=== PATIENT | female | born 2000 | race American Indian/Alaskan Native ===

== ENCOUNTER 2021-01-16 21:51 | Inpatient (IN) | payer MEDICAID ==
[2021-01-16] MEDS ORDERED: LACTATED RINGERS 1,000 ML IV ONE (22:44)
[2021-01-16] MEDS ORDERED: LACTATED RINGERS 1,000 ML IV SCH (23:45)
[2021-01-16 23:46] LABS: Bilirubin,Urine NEG (Negative); Blood,Urine MOD (Negative); Color,Urine Yellow (Yellow); Mucus,Urine FEW /HPF
[2021-01-16 23:46] LABS: Alanine Aminotransferase 8 units/L (7-56); Albumin 3.5 g/dL (3.9-5); BUN/Creatinine Ratio 12; Blood Urea Nitrogen 6 mg/dL (7-17); Calcium 9.1 mg/dL (8.4-10.2); Hemolysis Index 68
[2021-01-16] MEDS ORDERED: BUTORPHANOL 2 MG/1 ML INJ ONE (23:47)
[2021-01-16 23:52] LABS: Eosinophils % (Auto) 0.3 % (0.0-4.3); Hematocrit 39.6 % (30.3-42.9); Hemoglobin 13.5 gm/dl (10.1-14.3); Lymphocytes # (Auto) 1.3 K/mm3 (1.2-5.4); Lymphocytes % (Auto) 8.2 % (13.4-35.0); Mean Corpuscular HGB Conc 34 % (30-34); Mean Corpuscular Volume 90 fl (79-97); Monocytes % (Auto) 6.3 % (0.0-7.3); Platelet Count 182 K/mm3 (140-440); Red Blood Count 4.39 M/mm3 (3.65-5.03); Red Cell Distribution Width 12.9 % (13.2-15.2)
[2021-01-16 23:53] LABS: Amphetamine Screen,Urine PRESUMPTIVE NEGATIVE; Benzodiazepines Screen,Urine PRESUMPTIVE NEGATIVE; Cannabinoid Screen,Urine PRESUMPTIVE NEGATIVE; Cocaine Screen,Urine PRESUMPTIVE NEGATIVE; Methadone Screen,Urine PRESUMPTIVE NEGATIVE; Opiate Screen,Urine PRESUMPTIVE NEGATIVE
--- NOTE | 2021-01-16 23:55 | History and Physical Report ---
History of Present Illness Date of examination: 01/17/21 Date of admission: contractions Chief complaint: contractions, elevated BPs History of present illness: 20 yo at 39w0d by [facility] 01/24/21 c/b varicella non-immune presenting, GBS pos, presenting with contractions, found to be 2 cm. However, also found to have elevated BPs on admission that resolved spontaneously. PIH labs wnl. Admitted for OBS and potential IOL. PNC reviewed A pos, Ab neg 33.1/10.8 Varicella NI RPR NR Rubella Immune GBS pos HIV NR 1hr GTT 109 Past History Past Medical History: no pertinent history Past Surgical History: no surgical history Family/Genetic History: none Social history: no significant social history - Obstetrical History Expected Date of Delivery: 01/24/21 Actual Gestation: 39 Week(s) 0 Day(s) : 2 Para: 0 Spontaneous Abortions: 1 Number of Living Children: 0 Medications and Allergies Allergies Allergy/AdvReac Type Severity Reaction Status Date / Time No Known Allergies Allergy Verified 01/16/21 22:44 Home Medications Medication Instructions Recorded Confirmed Last Taken Type No Known Home Medications [No 01/17/21 01/17/21 Unknown History Reported Home Medications] Active Meds: Active Medications Butorphanol Tartrate (Butorphanol 2 Mg/1 Ml Inj) 2 mg IV Q2H PRN PRN Reason: Labor Pain Lactated Ringer's (Lactated Ringers) 1,000 mls @ 125 mls/hr IV DIRECT SOPHIA Review of Systems All systems: negative (expect HPI) - Vital Signs Vital signs: Vital Signs Temp 99.9 F H 01/16/21 22:15 Temp Pulse Resp BP Pulse Ox 99.9 F H 99 H 140/92 01/16/21 22:15 01/16/21 23:47 01/16/21 23:47 - Physical Exam Abdomen: Positive: normal appearance, normal bowel sounds Uterus: Positive: enlarged - Obstetrical FHR: category 1 Uterine Contraction Monitor Mode: External Cervical Dilatation: 2 Uterine Contraction Pattern: Irregular Results Result Diagrams: 01/16/21 23:02 01/16/21 22:44 Abnormal lab results 01/16/21 01/16/21 Range/Units 22:44 23:02 WBC 16.0 H (4.5-11.0) K/mm3 RDW 12.9 L (13.2-15.2) % Lymph % (Auto) 8.2 L (13.4-35.0) % [place] # (Auto) 1.0 H (0.0-0.8) K/mm3 Seg Neutrophils % 85.2 H (40.0-70.0) % Seg Neutrophils # 13.6 H (1.8-7.7) K/mm3 Sodium 136 L (137-145) mmol/L Carbon Dioxide 19 L (22-30) mmol/L BUN 6 L (7-17) mg/dL Creatinine 0.5 L (0.6-1.2) mg/dL Alkaline Phosphatase 200 H (35-129) units/L Albumin 3.5 L (3.9-5) g/dL All other labs normal. Assessment and Plan - Patient Problems (1) Elevated blood pressure affecting in third trimester, antepartum Current Visit: Yes Status: Acute Plan to address problem: PIH labs wnl. BPs improved without intervention. Monitor of s/sx of preeclampsia. Proceed with IOL for atleast GHTN Cervidil for cervical ripening, followed by pitocin Anticipae Amp for GBS pos
[2021-01-17] MEDS ORDERED: ACETAMINOPHEN 325 MG TAB PO PRN ×2 (00:33→16:47)
[2021-01-17] MEDS: BUTORPHANOL 2 MG/1 ML INJ IV PRN ×2 (01:24→11:50)
[2021-01-17] MEDS ORDERED: TERBUTALINE 1 MG/1 ML INJ SUB-Q PRN (07:52)
[2021-01-17] MEDS ORDERED: AMPICILLIN/NS 2 GM/100 ML 2 GM/100 ML BAG IV ONE (07:52)
[2021-01-17] MEDS ORDERED: LIDOCAINE (2%) 20 MG/1 ML VIAL 20 ML MDV INFILTRATI NR (07:52)
[2021-01-17] MEDS ORDERED: DINOPROSTONE 10 MG VAG SUPP VG NR (07:52)
[2021-01-17] MEDS ORDERED: miSOPROStol 200 MCG TAB PR PRN (07:54)
[2021-01-17] MEDS ORDERED: OXYTOCIN 10 UNIT/1 ML INJ IM PRN (07:54)
[2021-01-17] MEDS ORDERED: CARBOPROST TROMETHAMINE 250 MCG/1 ML INJ IM PRN (07:54)
[2021-01-17] MEDS ORDERED: METHYLERGONOVINE MALEATE 0.2 MG/ML VIAL IM PRN (07:54)
[2021-01-17] MEDS ORDERED: OXYTOCIN DRIP 30 UNITS/500 ML BAG IV SCH ×2 (08:00)
[2021-01-17] MEDS ORDERED: LOPERAMIDE 2 MG CAP PO PRN (08:00)
[2021-01-17] MEDS ORDERED: LACTATED RINGERS 1,000 ML IV SCH ×2 (08:00)
[2021-01-17] MEDS ORDERED: ePHEDrine SULFATE 50 MG/1 ML INJ IV PRN ×2 (08:30→16:30)
--- NOTE | 2021-01-17 09:20 | Progress Note ---
Assessment and Plan A: IUP@ 39.1 wks (IOL r/t PIH) GBS pos Varicella NI P: Continue monitoring GBS protocal Offer Varicella vaccine pp Anticipate Subjective - Subjective Date of service: 01/17/21 Principal diagnosis: IUP@ 39.1 wks Patient reports: movement normal Objective - Vital Signs Vital Signs: Vital Signs - 12hr 01/16/21 01/16/21 01/16/21 22:15 22:16 22:21 Temperature 99.9 F H Pulse Rate 101 H 97 H Respiratory Rate Blood Pressure 186/95 186/103 Blood Pressure [Left] 01/16/21 01/16/21 01/16/21 22:32 22:48 23:04 Temperature Pulse Rate 103 H 100 H 112 H Respiratory Rate Blood Pressure 193/110 161/91 134/85 Blood Pressure [Left] 01/16/21 01/16/21 01/16/21 23:17 23:32 23:47 Temperature Pulse Rate 102 H 86 99 H Respiratory Rate Blood Pressure 139/94 131/63 140/92 Blood Pressure [Left] 01/17/21 01/17/21 01/17/21 01:13 01:52 02:13 Temperature 99.1 F Pulse Rate 100 H 103 H 102 H Respiratory Rate Blood Pressure 117/74 124/74 120/76 Blood Pressure 117/74 [Left] 01/17/21 01/17/21 01/17/21 02:33 02:52 03:12 Temperature Pulse Rate 94 H 99 H 100 H Respiratory Rate Blood Pressure 130/84 119/70 129/84 Blood Pressure [Left] 01/17/21 01/17/21 01/17/21 03:37 03:53 04:32 Temperature Pulse Rate 99 H 104 H 102 H Respiratory Rate Blood Pressure 137/84 125/76 134/83 Blood Pressure [Left] 01/17/21 01/17/21 01/17/21 04:52 05:20 05:34 Temperature Pulse Rate 101 H 96 H 94 H Respiratory Rate Blood Pressure 128/78 128/82 139/96 Blood Pressure [Left] 01/17/21 01/17/21 01/17/21 05:37 05:54 06:13 Temperature Pulse Rate 90 92 H 87 Respiratory Rate Blood Pressure 141/87 143/84 134/88 Blood Pressure [Left] 01/17/21 01/17/21 01/17/21 06:33 06:54 07:15 Temperature Pulse Rate 88 86 93 H Respiratory Rate Blood Pressure 133/69 127/71 114/67 Blood Pressure [Left] 01/17/21 01/17/21 07:40 07:51 Temperature 99.0 F Pulse Rate 93 H Respiratory 18 Rate Blood Pressure 129/71 Blood Pressure [Left] - Exam Breasts: normal Abdomen: Present: normal appearance, soft, normal bowel sounds, other (gravid) Vulva: both: normal Uterus: Present: normal, other (gravid) FHR: auscultation normal, category 1 Uterine Contraction Monitor Mode: External Cervical Dilatation: 3 (per nurse) Cervical Effacement Percentage: 60 station: -3 Uterine Contraction Pattern: Irregular Uterine Tone Measurement Phase: Resting Uterine Contraction Intensity: Mild Extremities: normal - Labs Labs: Abnormal Labs 01/16/21 01/16/21 01/16/21 22:44 23:02 23:12 WBC 16.0 H RDW 12.9 L Lymph % (Auto) 8.2 L [place] # (Auto) 1.0 H Seg Neutrophils % 85.2 H Seg Neutrophils # 13.6 H Sodium 136 L Carbon Dioxide 19 L BUN 6 L Creatinine 0.5 L Alkaline Phosphatase 200 H Albumin 3.5 L Urine WBC (Auto) 17.0 H Laboratory Results - last 24 hr 01/16/21 01/16/21 01/16/21 22:44 23:02 23:02 WBC 16.0 H RBC 4.39 Hgb 13.5 Hct 39.6 MCV 90 MCH 31 MCHC 34 RDW 12.9 L Plt Count 182 Lymph % (Auto) 8.2 L [place] % (Auto) 6.3 Eos % (Auto) 0.3 Baso % (Auto) 0.0 Lymph # (Auto) 1.3 [place] # (Auto) 1.0 H Eos # (Auto) 0.0 Baso # (Auto) 0.0 Seg Neutrophils % 85.2 H Seg Neutrophils # 13.6 H Sodium 136 L Potassium 4.2 Chloride 104.3 Carbon Dioxide 19 L Anion Gap 17 BUN 6 L Creatinine 0.5 L Estimated GFR > 60 BUN/Creatinine Ratio 12 Glucose 73 Calcium 9.1 Total Bilirubin 0.70 AST 19 ALT 8 Alkaline Phosphatase 200 H Total Protein 6.6 Albumin 3.5 L Albumin/Globulin Ratio 1.1 Urine Color Urine Turbidity Urine pH Ur Specific [place] Urine Protein Urine Glucose (UA) Urine Ketones Urine Blood Urine Nitrite Urine Bilirubin Urine Urobilinogen Ur Leukocyte Esterase Urine WBC (Auto) Urine RBC (Auto) U Epithel Cells (Auto) Urine Mucus Urine Opiates Screen Urine Methadone Screen Ur Barbiturates Screen Ur Phencyclidine Scrn Ur Amphetamines Screen U Benzodiazepines Scrn Urine Cocaine Screen U Marijuana (THC) Screen Drugs of Abuse Note Blood Type A POSITIVE Antibody Screen Negative 01/16/21 01/16/21 23:12 23:12 WBC RBC Hgb Hct MCV MCH MCHC RDW Plt Count Lymph % (Auto) [place] % (Auto) Eos % (Auto) Baso % (Auto) Lymph # (Auto) [place] # (Auto) Eos # (Auto) Baso # (Auto) Seg Neutrophils % Seg Neutrophils # Sodium Potassium Chloride Carbon Dioxide Anion Gap BUN Creatinine Estimated GFR BUN/Creatinine Ratio Glucose Calcium Total Bilirubin AST ALT Alkaline Phosphatase Total Protein Albumin Albumin/Globulin Ratio Urine Color Yellow Urine Turbidity Clear Urine pH 6.0 Ur Specific [place] 1.019 Urine Protein 30 mg/dl Urine Glucose (UA) Neg Urine Ketones Neg Urine Blood Mod Urine Nitrite Neg Urine Bilirubin Neg Urine Urobilinogen 2.0 Ur Leukocyte Esterase Tr Urine WBC (Auto) 17.0 H Urine RBC (Auto) 2.0 U Epithel Cells (Auto) 5.0 Urine Mucus Few Urine Opiates Screen Presumptive negative Urine Methadone Screen Presumptive negative Ur Barbiturates Screen Presumptive negative Ur Phencyclidine Scrn Presumptive negative Ur Amphetamines Screen Presumptive negative U Benzodiazepines Scrn Presumptive negative Urine Cocaine Screen Presumptive negative U Marijuana (THC) Screen Presumptive negative Drugs of Abuse Note Disclamer Blood Type Antibody Screen
[2021-01-17] MEDS: PRENATAL VIT27-FE FUMARATE-FOLIC ACID VIT TAB PO SCH (10:00)
[2021-01-17] MEDS: AMPICILLIN/NS 1 GM/50 ML 1 GM/50 ML BAG IV SCH ×2 (12:52→16:56)
[2021-01-17] MEDS ORDERED: fentaNYL-BUPIV 2 MCG/ML-0.125% 200 MCG/100 ML BAG EPIDURAL SCH (16:00)
--- NOTE | 2021-01-17 16:00 | Anesthesia Consultation ---
Anesthesia Consult and Med Hx Date of service: 01/17/21 - Airway Anesthetic Teeth Evaluation: Chipped ROM Head & Neck: Adequate Mental/Hyoid Distance: Adequate Mallampati Class: Class II Intubation Access Assessment: Probably Good - Pulmonary Exam CTA: Yes - Cardiac Exam Cardiac Exam: RRR - Pre-Operative Health Status ASA Pre-Surgery Classification: ASA3 Proposed Anesthetic Plan: Epidural - Pulmonary Hx Asthma: Yes (NEVER HAD AN ATTACK) COPD: No Hx Pneumonia: No - Cardiovascular System Hx Hypertension: No - Central Nervous System Hx Seizures: No Hx Psychiatric Problems: No - Endocrine Hx Renal Disease: No Hx End Stage Renal Disease: No Hx Hypothyroidism: No Hx Hyperthyroidism: No - Hematic Hx Anemia: No Hx Sickle Cell Disease: No - Other Systems Hx Obesity: Yes
--- NOTE | 2021-01-17 16:19 | Progress Note ---
Labor Epidural - Labor Epidural Start Time: 16:09 Stop Time: 16:13 Performed by:: ZOLTAN WILKINSON Procedure: Patient is requesting epidural for labor pain. H&P, and labs reviewed. Procedure explained, questions answered, consent obtained. Patient in sitting position with blood pressure cuff and pulse ox on and working. Timeout performed immediately before start of procedure. Sterile chlorahexadine 0.5% prep/drape. 3 mL 1% lidocaine skin wheal at L[3]-L[4]. 18-gauge [employer] epidural needle advanced to [id number] with saline at [7] cm. 27-gauge spinal needle advanced until clear, free-flowing CSF. Intrathecal dexmedetomidine [5] mcg administered and needle removed. Epidural catheter advanced to [12] cm, negative aspiration for blood and csf, negative test dose 3 ml 1.5% lidocaine with epinephrine. Sterile steri-strips and tegaderm applied, followed by tape reinforcement. Patient tolerated procedure well.
[2021-01-17] MEDS ORDERED: NALOXONE 2 MG/2 ML INJ IV PRN (16:30)
[2021-01-17] MEDS ORDERED: fentaNYL 100 MCG/2 ML INJ IV PRN (16:47)
[2021-01-17] MEDS ORDERED: BUTORPHANOL 2 MG/1 ML INJ IV PRN ×2 (16:47)
[2021-01-17] MEDS ORDERED: MINERAL OIL 30 ML ORAL LIQD PO PRN (22:00)
[2021-01-18] MEDS ORDERED: WITCH HAZEL/ GLYCERIN PAD TP PRN (00:26)
[2021-01-18] MEDS ORDERED: PROMETHAZINE 25 MG TAB PO PRN (00:26)
[2021-01-18] MEDS ORDERED: MAGNESIUM HYDROXIDE (MOM) ORAL LIQD UDC PO PRN (00:26)
[2021-01-18] MEDS ORDERED: LANOLIN/ZINC/DIMETHICONE (LANSINOH) 7 GM TP PRN (00:26)
[2021-01-18] MEDS ORDERED: oxyCODONE /ACETAMINOPHEN 5-325MG TAB PO PRN (00:26)
[2021-01-18] MEDS ORDERED: ONDANSETRON 4 MG/2 ML INJ IV PRN (00:26)
[2021-01-18] MEDS ORDERED: diphenhydrAMINE 25 MG CAP PO PRN (00:26)
[2021-01-18] MEDS ORDERED: PROMETHAZINE 25 MG RECT SUPP PR PRN (00:26)
--- NOTE | 2021-01-18 00:33 | Procedure Note ---
OB Delivery Note - Delivery Date of Delivery: 01/18/21 Surgeon: BERE JEONG Estimated blood loss: other (550cc) - Vaginal Delivery presentation: vertex Delivery position: OA Intrapartum events: gestational hypertension, hemorrhage Delivery induction: oxytocin Delivery augmentation: rupture of membranes Delivery monitor: external FHT, external uterine Route of delivery: Delivery placenta: spontaneous Delivery cord: 3 umbilical vessels Episiotomy: none Delivery laceration: none Anesthesia: epidural Delivery comments: of a stunned live viable female infant in OA position over an intact perineum. was placed on mom's chest/abd while cord was clamped x2 and cut. Infant was given to awaiting NICU nurse for an asses 6/8. Spontaneous delivery of an intact placenta with 3CV. Fundus @ 3U boggy intermittently with constant trickle of bright red blood. Homeostasis was maintained with fundal mas reynold, IM pitocin, Cytotec MO, and Methergine 0.2 mg IM. QBL 605 cc. FW 3150 Gms. Mom and baby was left in stable condition with nurse. - Infant A at 1 minute: 6 at 5 minutes: 8 Infant Gender: Female
[2021-01-18] MEDS ORDERED: MAGNESIUM SULFATE 40GM/1000ML 40 GM/1,000 ML BAG IV ONE (00:57)
[2021-01-18] MEDS ORDERED: MAGNESIUM SULFATE 4 GM/100 ML BAG IV ONE (01:01)
[2021-01-18] MEDS ORDERED: ACETAMINOPHEN 325 MG TAB PO PRN (01:10)
[2021-01-18] MEDS ORDERED: hydrALAZINE 20 MG/1 ML INJ IV ONE (01:15)
--- NOTE | 2021-01-18 01:38 | Event Note ---
Date: 01/18/21 Notified by nurse that pt's b/p was 179/84 and her temp was 102.5. Pt denied stallings, visual problems, or epigastric pain. Hydralazine 10mg IV, Labetalol 100mg bid, Tylenol 650 mg prn, and Clind/Gent/Ampi started along with Mgso4 with Mg prec. B/P down to 158/77 after Hydralazine. Will cont moniitoring. Dr Muñoz was notified.
[2021-01-18] MEDS ORDERED: AMPICILLIN 500 MG VIAL IV SCH (02:00)
[2021-01-18] MEDS ORDERED: GENTAMICIN/NS 80 MG/100 ML 100 ML IV SCH (02:00)
[2021-01-18] MEDS: AMPICILLIN/NS 1 GM/50 ML 1 GM/50 ML BAG IV SCH ×4 (02:13→20:56)
[2021-01-18] MEDS: IBUPROFEN 600 MG TAB PO SCH ×5 (06:00→23:37)
[2021-01-18] MEDS: GENTAMICIN/NS 100 MG/100 ML 100 MG/100 ML BAG IV SCH ×3 (06:19→23:36)
[2021-01-18 08:47] LABS: Hematocrit 35.1 % (30.3-42.9)
[2021-01-18] MEDS ORDERED: PRENATAL VIT27-FE FUMARATE-FOLIC ACID VIT TAB PO SCH (10:00)
[2021-01-18] MEDS: PRENATAL VIT27-FE FUMARATE-FOLIC ACID VIT TAB PO SCH (10:11)
--- NOTE | 2021-01-18 11:21 | Progress Note ---
Assessment and Plan A: day 1 S/P . Gestational hypertension. Obesity. History of hemorrhage during delivery. Suspected endometritis (had fever overnight and elevated WBC): currently on triple antibiotics. P: Continue antibiotics. Repeat CBC tomorrow morning. Continue BP monitoring and routine care. Subjective - Subjective Date of service: 01/18/21 Principal diagnosis: day 1 S/P Interval history: Patient on triple antibiotics due to elevated WBC and fever overnight. Urine culture shows normal juan. Patient reports: appetite normal, voiding normally, pain well controlled, flatus, ambulating normally, no dizzy ambulation, no nauseated [place]: doing well Objective - Vital Signs Latest vital signs: Vital Signs Temp Pulse Resp BP BP Pulse Ox 01/18/21 08:10 99.8 F H 91 H 18 121/74 100 01/18/21 08:00 18 01/18/21 07:20 76 136/80 01/18/21 06:50 86 107/64 01/18/21 06:20 76 128/63 01/18/21 06:18 99.8 F H 01/18/21 05:50 78 135/75 01/18/21 05:20 76 129/71 01/18/21 04:50 89 127/69 01/18/21 04:20 99 H 125/67 01/18/21 03:50 103 H 133/61 01/18/21 02:48 92 H 125/68 01/18/21 02:28 89 137/76 01/18/21 02:20 100.9 F H 01/18/21 02:08 88 139/69 01/18/21 01:28 112 H 136/85 01/18/21 01:10 87 158/77 01/18/21 01:03 75 167/77 01/18/21 01:02 75 167/77 01/18/21 00:58 76 160/77 01/18/21 00:47 86 172/95 01/18/21 00:29 80 187/100 01/17/21 23:58 100 H 154/96 01/17/21 23:34 120 H 125/81 01/17/21 23:05 111 H 99 01/17/21 22:55 130 H 99 01/17/21 22:50 105 H 99 01/17/21 22:48 103 H 91 01/17/21 22:45 119 H 100 01/17/21 22:40 93 H 100 01/17/21 22:35 106 H 100 01/17/21 22:30 112 H 95 01/17/21 22:28 32 L 77 L 01/17/21 22:25 111 H 100 01/17/21 22:23 70 85 01/17/21 22:20 115 H 100 01/17/21 22:15 91 H 96 01/17/21 22:11 110 H 91 01/17/21 22:10 109 H 100 01/17/21 21:29 111 H 133/83 01/17/21 21:00 112 H 128/83 01/17/21 20:59 126 H 127/81 01/17/21 20:29 97 H 146/85 01/17/21 19:59 114 H 120/65 01/17/21 19:30 105 H 119/73 98 01/17/21 19:25 105 H 99 01/17/21 19:21 98.8 F 104 H 126/74 126/74 01/17/21 19:20 105 H 98 01/17/21 19:18 115 H 87/68 01/17/21 19:15 103 H 99 01/17/21 19:10 106 H 97 01/17/21 19:05 101 H 98 01/17/21 19:00 106 H 98 01/17/21 18:59 110 H 119/74 01/17/21 18:55 104 H 97 01/17/21 18:50 107 H 98 01/17/21 18:45 111 H 99 01/17/21 18:40 97 H 99 01/17/21 18:35 101 H 98 01/17/21 18:30 95 H 98 01/17/21 18:29 100 H 110/66 01/17/21 18:25 100 H 98 01/17/21 18:20 100 H 97 01/17/21 18:15 98 H 97 01/17/21 18:10 100 H 98 01/17/21 18:05 98 H 98 01/17/21 18:00 90 109/71 99 01/17/21 17:55 92 H 99 01/17/21 17:50 98 H 98 01/17/21 17:45 98 H 97 01/17/21 17:40 115 H 98 01/17/21 17:35 109 H 98 01/17/21 17:30 95 H 97 01/17/21 17:28 104 H 111/65 01/17/21 17:25 111 H 96 01/17/21 17:20 93 H 98 01/17/21 17:15 103 H 97 01/17/21 17:10 91 H 98 01/17/21 17:05 99 H 98 01/17/21 17:00 97 H 97 01/17/21 16:56 108 H 120/72 01/17/21 16:55 98 H 99 01/17/21 16:54 100 H 121/71 01/17/21 16:52 96 H 122/75 01/17/21 16:50 99 H 117/75 99 01/17/21 16:48 93 H 120/75 01/17/21 16:46 108 H 118/79 01/17/21 16:45 97 H 98 01/17/21 16:44 103 H 109/70 01/17/21 16:42 95 H 115/69 01/17/21 16:40 102 H 115/70 98 01/17/21 16:38 99 H 118/73 01/17/21 16:36 102 H 117/69 01/17/21 16:35 94 H 98 01/17/21 16:34 101 H 116/68 01/17/21 16:32 98 H 119/72 01/17/21 16:30 103 H 116/73 99 01/17/21 16:29 100 H 119/75 01/17/21 16:27 109 H 143/82 01/17/21 16:25 103 H 135/71 99 01/17/21 16:23 107 H 133/62 01/17/21 16:20 99 H 99 01/17/21 16:17 105 H 141/90 01/17/21 16:15 105 H 135/79 99 01/17/21 16:12 127 H 138/88 01/17/21 16:11 101 H 132/82 01/17/21 16:09 124 H 99 01/17/21 12:48 98.9 F 82 18 126/71 01/17/21 11:50 18 Intake and Output 01/17/21 01/18/21 01/18/21 23:59 07:59 15:59 Intake Total 50 Output Total 50 Balance -50 50 Intake: IV 50 AMPICILLIN/NS 1 GM/50 ML 50 1 gm In 50 ml @ 100 mls/ hr IV Q6HR [facility] Rx#: [id number] Output: Urine 50 Uretheral ([place]) 50 Other: Estimated Blood Loss 605 - Exam Cardiovascular: Present: Regular rate Lungs: Present: Clear to auscultation Abdomen: Present: soft. Absent: normal appearance, distention, tenderness, guarding, rigidity Uterus: Present: normal, firm, fundal height below umbilicus. Absent: bogginess, tenderness Extremities: Present: normal. Absent: tenderness, edema
--- NOTE | 2021-01-18 21:53 | Post Anesthesia Evaluation ---
- Post Anesthesia Evaluation Patient Participated: Yes Airway Patent: Yes Stable Respiratory Function: Yes Nausea/Vomiting: No Temp > 96.8F: Yes Pain Manageable: Yes Adequeate Hydration: Yes Anesthesia Complications: No Block Receding Appropriately: Yes
[2021-01-19] MEDS: AMPICILLIN/NS 1 GM/50 ML 1 GM/50 ML BAG IV SCH ×3 (03:15→18:25)
[2021-01-19] MEDS: GENTAMICIN/NS 100 MG/100 ML 100 MG/100 ML BAG IV SCH ×2 (04:59→13:45)
[2021-01-19] MEDS: IBUPROFEN 600 MG TAB PO SCH ×3 (04:59→19:43)
[2021-01-19 08:32] LABS: Basophils % (Auto) 0.2 % (0.0-1.8); Eosinophils # (Auto) 0.1 K/mm3 (0.0-0.4); Eosinophils % (Auto) 1.3 % (0.0-4.3); Hematocrit 30.8 % (30.3-42.9); Hemoglobin 10.3 gm/dl (10.1-14.3); Lymphocytes # (Auto) 2.1 K/mm3 (1.2-5.4); Lymphocytes % (Auto) 18.9 % (13.4-35.0); Mean Corpuscular HGB Conc 34 % (30-34); Mean Corpuscular Volume 91 fl (79-97); Monocytes # (Auto) 0.8 K/mm3 (0.0-0.8); Monocytes % (Auto) 7.3 % (0.0-7.3); Platelet Count 164 K/mm3 (140-440); Red Blood Count 3.39 M/mm3 (3.65-5.03); Red Cell Distribution Width 13.5 % (13.2-15.2)
[2021-01-19] MEDS: PRENATAL VIT27-FE FUMARATE-FOLIC ACID VIT TAB PO SCH (09:26)
[2021-01-19 16:47] VITALS: BP 115/65
--- NOTE | 2021-01-19 18:52 | Progress Note ---
Assessment and Plan PPD#2 with resolving leucocytosis and asymptomatic, normal BP 1. will discharge home with BP check in one week 2. All questions encouraged and answered Subjective Date of service: 01/19/21 Principal diagnosis: day 2 S/P Interval history: pt desires to go home and denies any complaints. Pt is bottle feeding. Denies fever, chills or shortness of breath or dysuria. Vag bleed less than a period. Pt desires contraception at a later date. Objective - Constitutional Vitals: Vital Signs - 12hr 01/19/21 01/19/21 08:03 16:02 Temperature 97.4 F L 97.9 F Pulse Rate 88 90 Respiratory 16 20 Rate Blood Pressure 112/65 115/65 O2 Sat by Pulse 99 99 Oximetry General appearance: Present: no acute distress - Respiratory Respiratory effort: normal - Breasts Breasts: normal Extremities: No edema - Genitourinary Female genitourinary: normal (Fundus firm 2cm below umbilicus and non-tender) - Labs CBC & Chem 7: 01/19/21 07:40 01/16/21 22:44 Labs: Abnormal lab results 01/19/21 Range/Units 07:40 RBC 3.39 L (3.65-5.03) M/mm3 Seg Neutrophils % 72.3 H (40.0-70.0) % Seg Neutrophils # 8.0 H (1.8-7.7) K/mm3 Medications & Allergies - Medications Allergies/Adverse Reactions: Allergies No Known Allergies Allergy (Verified 01/16/21 22:44) Home Medications: Home Medications Medication Instructions Recorded Confirmed Last Taken Type No Known Home Medications [No 01/17/21 01/17/21 Unknown History Reported Home Medications] Active Medications: Generic Name Dose Route Start Last Admin Trade Name Freq PRN Reason Stop Dose Admin Acetaminophen 650 mg 01/18/21 01:10 01/18/21 12:00 Acetaminophen 325 Mg Tab PO 650 mg Q6H PRN Administration Pain, Mild (1-3) Bisacodyl 10 mg 01/18/21 00:26 Bisacodyl 10 Mg Rect Supp NC BID PRN Constipation Diphenhydramine HCl 25 mg 01/18/21 00:26 Diphenhydramine 25 Mg Cap PO Q6H PRN Itching Oxytocin/Sodium Chloride 30 units in 500 mls @ 2 mls/hr 01/17/21 08:00 01/17/21 12:47 Pitocin/Ns 30 Unit/500ml IV 12 ml/hr TITR SOPHIA 12 mls/hr Titration Protocol Lactated Ringer's 1,000 mls @ 125 mls/hr 01/17/21 08:00 01/18/21 08:35 Lactated Ringers IV 125 mls/hr DIRECT SOPHIA Administration Clindamycin HCl 900 mg in 50 mls @ 100 mls/hr 01/18/21 02:00 01/19/21 12:16 Cleocin 900 Mg/50 Ml IV 100 mls/hr Q8H SOPHIA Administration Protocol Ampicillin Sodium 1 gm in 50 mls @ 100 mls/hr 01/18/21 01:45 01/19/21 18:25 Ampicillin/Ns 1 Gm/50 Ml IV 100 mls/hr Q6HR SOPHIA Administration Gentamicin Sulfate/Sodium Chloride 100 mg in 100 mls @ 133.333 mls/hr 01/18/21 04:00 01/19/21 13:45 Gentamicin/Ns 100 Mg/100 Ml IV 133.333 mls/hr Q8H SOPHIA Administration Ibuprofen 600 mg 01/18/21 01:00 01/19/21 12:17 Ibuprofen 600 Mg Tab PO 600 mg Q6HR SOPHIA Administration Magnesium Hydroxide 30 ml 01/18/21 00:26 Magnesium Hydroxide (Mom) Oral Liqd Udc PO HS PRN Constipation Multi-Ingredient Ointment 1 applic 01/18/21 00:26 Lanolin/Zinc/Dimethicone (Lansinoh) 7 Gm TP PRN PRN Sore Nipples Multivitamins/Iron/Calcium 1 each 01/17/21 10:00 01/19/21 09:26 [id number] Fumarate-Folic Acid Vit Tab PO 1 each QDAY SOPHIA Administration Naloxone HCl 0.2 mg 01/17/21 16:30 Naloxone 2 Mg/2 Ml Inj IV Q5M PRN Respiratory sedation Ondansetron HCl 4 mg 01/18/21 00:26 Ondansetron 4 Mg/2 Ml Inj IV Q8H PRN Nausea And Vomiting Oxycodone/Acetaminophen 1 tab 01/18/21 00:26 Oxycodone /Acetaminophen 5-325mg Tab PO Q6H PRN Pain, Moderate (4-6) Promethazine HCl 25 mg 01/18/21 00:26 Promethazine 25 Mg Rect Supp NC Q6H PRN Nausea And Vomiting Promethazine HCl 25 mg 01/18/21 00:26 Promethazine 25 Mg Tab PO Q6H PRN Nausea And Vomiting [place]/Glycerin 1 each 01/18/21 00:26 [place]/ Glycerin Pad TP PRN PRN Hemorrhoid/cleansing/soothing
--- NOTE | 2021-01-20 04:21 | Discharge Summary ---
Providers - Providers Date of Admission: 01/17/21 00:53 Date of discharge: 01/19/21 Attending physician: WAGNER NAGY JR, MD Primary care physician: WAGNER NAGY JR, MD Hospitalization Reason for admission: active labor Delivery: complications: uterine atony (PPH treated with uterotonics), other (endomyometritis treated with antibiotics IV and then oral) Discharge diagnosis: IUP at term delivered baby: female Hospital course: Pt had term with PPH, and given IV antibiotics broad spectrum, pt had maternal tacchycardia that resolved with oral antibiotics. Pt was also noted to have gestational Hypertension that resolved post delivery. Condition at discharge: Good Disposition: [id number] TO HOME OR SELFCARE Plan - Discharge Medications Prescriptions: Ibuprofen [Motrin] 800 mg PO Q8HR PRN 21 Days #40 tablet PRN Reason: Pain, Moderate (4-6) - Provider Discharge Summary Activity: routine Diet: routine Additional instructions: [] Smoking cessation referral if applicable(refer to patient education folder for contact #) [] Refer to [facility]'s [facility] Booklet Call your doctor immediately for: * Fever > 100.5 * Heavy vaginal bleeding ( >1 pad per hour) * Severe persistent headache * Shortness of breath * Reddened, hot, painful area to leg or breast * Drainage or odor from incision. * Keep incision clean and dry at all times and follow doctor's instructions rega rding bathing/showering - Follow up plan Follow up: WAGNER NAGY JR, MD [Primary Care Provider] - 7 Days
== END 2021-01-19 21:30 | disposition home or self-care (01) | DRG 774 ==
LOC: TRG 21:51 → APU 21:53 → TRG 01-17 00:33 → LD 01-17 00:53 → OBSVTOIN 01-17 00:53 → OB 01-18 08:00
PROVIDERS: ADMIT Obstetrics & Gynecology; ATTEND Obstetrics & Gynecology
PROC: 3E033VJ Introduction of Other Hormone into Peripheral Vein, Percutaneous Approach (ICD-10-PCS; 2021-01-17)
PROC: 3E0R3BZ Introduction of Anesthetic Agent into Spinal Canal, Percutaneous Approach (ICD-10-PCS; 2021-01-17)
PROC: 00HU33Z Insertion of Infusion Device into Spinal Canal, Percutaneous Approach (ICD-10-PCS; 2021-01-17)
PROC: 10E0XZZ Delivery of Products of Conception, External Approach (ICD-10-PCS; principal; 2021-01-18)
DX: O13.4 Gestational [pregnancy-induced] hypertension without significant proteinuria, complicating childbirth (principal); O72.1 Other immediate postpartum hemorrhage; Z20.822 Contact with and (suspected) exposure to COVID-19; Z3A.39 39 weeks gestation of pregnancy; Z37.0 Single live birth; O99.824 Streptococcus B carrier state complicating childbirth; O99.214 Obesity complicating childbirth; E66.9 Obesity, unspecified; O86.12 Endometritis following delivery
CPT/HCPCS: 36415; 59025; 80053; 80307; 81001; 85014; 85018; 85025; 86850; 86900; 86901; 87086; 88307; 99211; G0378; G0463; J0290; J0360; J0595; J1580; J2210; J2590; J7120; U0003